=== PATIENT | female | born 1990 | race Caucasian/White ===

== ENCOUNTER 2019-09-07 04:47 | Inpatient (IN) | payer BC ==
[~2019-09-07] VITALS: Ht 157.5 cm; Wt 73.9 kg
[2019-09-07] MEDS ORDERED: LR 1,000 ML IV ONE (06:10)
[2019-09-07] MEDS ORDERED: CLINDAMYCIN 900 mg/50mL D5W 50 ML IV ONE (06:15)
[2019-09-07 06:48] LABS: BASOPHILS # (AUTO) 0.1 K/uL (0.0-0.2); BASOPHILS % (AUTO) 1.2 % (0.0-2.0); EOSINOPHILS # (AUTO) 0.1 K/uL (0.0-0.4); EOSINOPHILS % (AUTO) 1.4 % (0.0-4.0); HEMATOCRIT 31.9 % (36-48); HEMOGLOBIN 10.7 g/dL (12.0-16.0); LYMPHOCYTES # (AUTO) 4.5 K/uL (1.0-5.5); LYMPHOCYTES % (AUTO) 53.7 % (20.5-51.5); MEAN CORPUSCULAR HEMOGLOBIN 30 pg (27-31); MEAN CORPUSCULAR HGB CONC 34 % (32-36); MEAN CORPUSCULAR VOLUME 90 fL (79.0-98.0); MONOCYTES # (AUTO) 0.6 K/uL (0.0-1.0); MONOCYTES % (AUTO) 7.2 % (1.7-9.3); NEUTROPHILS # (AUTO) 3.1 K/uL (1.8-7.7); NEUTROPHILS % (AUTO) 36.5 % (40.0-70.0); PLATELET COUNT (AUTO) 199 K/uL (130-430); RED BLOOD CELL COUNT(AUTO) 3.54 MIL/uL (4.2-6.2); RED CELL DISTRIBUTION WIDTH 13.7 % (9.0-15.0); WHITE BLOOD COUNT (AUTO) 8.5 K/uL (4.8-10.8)
[2019-09-07 07:02] LABS: BILIRUBIN,URINE NEGATIVE (NEGATIVE); BLOOD, URINE NEGATIVE (NEGATIVE); COLOR,URINE YELLOW (YELLOW); GLUCOSE,URINE NEGATIVE (NEGATIVE); KETONES,URINE NEGATIVE (NEGATIVE); LEUKOCYTE ESTERASE ,URINE NEGATIVE (NEGATIVE); NITRITE, URINE NEGATIVE (NEGATIVE); PROTEIN URINE NEGATIVE (NEGATIVE); UROBILINOGEN,URINE 0.2 (0.2-1.0)
[2019-09-07 07:05] LABS: CLARITY/URINE HAZY (CLEAR)
[2019-09-07] MEDS ORDERED: LR 1,000 ML IV.SOLN IV ONE (08:00)
[2019-09-07] MEDS ORDERED: ePHEDrine sulfate 50 MG/ML VIAL IVP ONE (08:00)
[2019-09-07] MEDS ORDERED: MORPHINE SULFATE 10MG/10ML PF AMP EP ONE (08:00)
[2019-09-07] MEDS ORDERED: ONDANSETRON HCL 4 MG/2 ML VIAL IVP ONE (08:00)
[2019-09-07] MEDS ORDERED: MIDAZOLAM HCL 5 MG/5 ML VIAL IVP ONE (08:00)
[2019-09-07] MEDS ORDERED: NS 50 ML BAG IV ONE (08:00)
[2019-09-07] MEDS ORDERED: OXYTOCIN 10 UNIT/ML VIAL IV ONE (08:00)
[2019-09-07] MEDS ORDERED: CEFAZOLIN 2 GM IVPB PREMIX 50 ML IV ONE (08:00)
[2019-09-07] MEDS ORDERED: BUPIVACAINE /PF 0.75% 10 ML VIAL INJ ONE (08:00)
[2019-09-07] MEDS ORDERED: NS IRRIG SOLN 1000 ML IR ONE (08:00)
[2019-09-07] MEDS ORDERED: KETOROLAC TROMETHAMINE 60 MG/2 ML VIAL IM PRN (09:00)
[2019-09-07] MEDS ORDERED: NALBUPHINE HCL 10 MG/ML AMP IVP PRN (09:00)
[2019-09-07] MEDS ORDERED: NALOXONE HCL 0.4 MG/ML AMP (NARCAN) IVP PRN ×2 (09:00)
[2019-09-07] MEDS ORDERED: DIPHENHYDRAMINE INJ 50 MG/ML VIAL IVP PRN (09:00)
[2019-09-07] MEDS ORDERED: MORPHINE SULFATE 10MG/10ML PF AMP SP SCH (09:00)
[2019-09-07] MEDS ORDERED: ONDANSETRON HCL 4 MG/2 ML VIAL IVP PRN (09:00)
[2019-09-07] MEDS ORDERED: fentaNYL CITRATE/PF 100 MCG/2 ML AMP IVP PRN ×2 (09:00)
[2019-09-07] MEDS ORDERED: OXYTOCIN/0.9 % SODIUM CHLORIDE 1,000 ML IV ONE (09:54)
[2019-09-07] MEDS ORDERED: fentaNYL CITRATE/PF 100 MCG/2 ML AMP ONE (10:25)
[2019-09-07] MEDS ORDERED: LR 1,000 ML IV SCH (10:28)
[2019-09-07] MEDS ORDERED: ANUSOL 1 EA SUPP.RECT (PREPARATION H) RC PRN (10:30)
[2019-09-07] MEDS ORDERED: OXYCODONE/ACETAMINOPHEN 5-325 TABLET PO PRN ×2 (10:30)
[2019-09-07] MEDS ORDERED: BISACODYL 10 MG/SUPPOSITORY RC PRN (10:30)
[2019-09-07] MEDS ORDERED: LANOLIN 7 GM OINT. TP PRN (10:30)
[2019-09-07] MEDS ORDERED: DIPHENHYDRAMINE INJ 50 MG/ML VIAL ONE (10:57)
[2019-09-07] MEDS: DOCUSATE SODIUM 100 MG CAPSULE PO PRN (11:48)
[2019-09-07] MEDS: SIMETHICONE 80 MG TAB.CHEW PO PRN (11:48)
[2019-09-07] MEDS: KETOROLAC TROMETHAMINE 30 MG VIAL IVP PRN ×2 (11:49→17:49)
[2019-09-07] MEDS: CEFAZOLIN 1 GM IVPB PREMIX 50 ML IV SCH ×2 (13:31→20:00)
[2019-09-07] MEDS ORDERED: LORazepam 2 MG/ML VIAL IM ONE (15:00)
[2019-09-07] MEDS: OXYTOCIN/0.9 % SODIUM CHLORIDE 1,000 ML IV SCH ×2 (16:15)
[2019-09-07] MEDS ORDERED: KETOROLAC TROMETHAMINE 30 MG VIAL IVP PRN (18:00)
[2019-09-07] MEDS: PREDNISONE 5 MG TABLET PO SCH ×2 (18:46→22:41)
[2019-09-07 21:18] VITALS: BP_SYST 105
[2019-09-07] MEDS: TEMAZEPAM 15 MG CAPSULE PO PRN (21:45)
[2019-09-08] MEDS: OXYTOCIN/0.9 % SODIUM CHLORIDE 1,000 ML IV SCH
[2019-09-08] MEDS: CEFAZOLIN 1 GM IVPB PREMIX 50 ML IV SCH (02:00)
[2019-09-08] MEDS: PREDNISONE 5 MG TABLET PO SCH ×4 (03:00→15:30)
[2019-09-08] MEDS: KETOROLAC TROMETHAMINE 30 MG VIAL IVP PRN ×2 (06:00)
[2019-09-08 07:09] LABS: BASOPHILS % (AUTO) 0.3 % (0.0-2.0); EOSINOPHILS # (AUTO) 0.1 K/uL (0.0-0.4); EOSINOPHILS % (AUTO) 1.3 % (0.0-4.0); HEMATOCRIT 28.1 % (36-48); HEMOGLOBIN 9.5 g/dL (12.0-16.0); LYMPHOCYTES % (AUTO) 22.9 % (20.5-51.5); MEAN CORPUSCULAR HEMOGLOBIN 31 pg (27-31); MEAN CORPUSCULAR HGB CONC 34 % (32-36); MEAN CORPUSCULAR VOLUME 91 fL (79.0-98.0); MONOCYTES # (AUTO) 0.8 K/uL (0.0-1.0); MONOCYTES % (AUTO) 9.5 % (1.7-9.3); NEUTROPHILS # (AUTO) 5.9 K/uL (1.8-7.7); PLATELET COUNT (AUTO) 174 K/uL (130-430); RED BLOOD CELL COUNT(AUTO) 3.08 MIL/uL (4.2-6.2); RED CELL DISTRIBUTION WIDTH 13.7 % (9.0-15.0)
[2019-09-08] MEDS: SENNOSIDES/DOCUSATE SODIUM 1 TAB TABLET(SENOKOT-S) PO PRN ×2 (11:17→22:54)
[2019-09-08] MEDS: DOCUSATE SODIUM 100 MG CAPSULE PO PRN ×2 (11:17→22:54)
[2019-09-08] MEDS: IBUPROFEN 600 MG TABLET PO SCH ×2 (12:15→18:01)
[2019-09-08] MEDS ORDERED: OXYCODONE/ACETAMINOPHEN *10*mg/325 mg TABLET PO PRN (12:30)
[2019-09-08] MEDS: OXYCODONE/ACETAMINOPHEN *10*mg/325 mg TABLET PO PRN (17:10)
[2019-09-08] MEDS: SIMETHICONE 80 MG TAB.CHEW PO PRN (22:54)
[2019-09-09] MEDS: IBUPROFEN 600 MG TABLET PO SCH ×3 (00:12→12:26)
[2019-09-09] MEDS: TEMAZEPAM 15 MG CAPSULE PO PRN (00:20)
[2019-09-09] MEDS: OXYCODONE/ACETAMINOPHEN *10*mg/325 mg TABLET PO PRN (06:13)
[2019-09-09] MEDS: HYDROcodone/ACETAMIN 5-325 MG TAB (NORCO/ VICODIN) PO PRN ×3 (08:29→16:00)
[2019-09-09] MEDS: DOCUSATE SODIUM 100 MG CAPSULE PO PRN (15:12)
[2019-09-09] MEDS: SENNOSIDES/DOCUSATE SODIUM 1 TAB TABLET(SENOKOT-S) PO PRN (15:12)
== END 2019-09-09 16:15 | disposition home or self-care (01) | DRG 788 ==
LOC: SPU 06:00
PROVIDERS: ADMIT Specialist; ATTEND Specialist
PROC: 10D00Z1 Extraction of Products of Conception, Low, Open Approach (ICD-10-PCS; principal; 2019-09-07 07:30)
DX: O34.211 Maternal care for low transverse scar from previous cesarean delivery (principal); Z3A.38 38 weeks gestation of pregnancy; Z37.0 Single live birth; Z88.1 Allergy status to other antibiotic agents
CPT/HCPCS: 36415; 85025; 86592; 86886; 86900; 86901; 94760; J0690; J1200; J1885; J2060; J2250; J2274; J2405; J2590; J3010; J3490; J7120; J7512